=== PATIENT | female | born 1970 | race Caucasian/White ===

== ENCOUNTER 2017-10-25 06:35 | Day surgery (SDC) | payer OTHER ==
[2017-10-25] MEDS ORDERED: Lactated Ringers 1,000 ML IV SCH (07:00)
[2017-10-25] MEDS ORDERED: fentaNYL 100 MCG/2 ML SDV ONE (07:18)
[2017-10-25] MEDS ORDERED: Propofol 200 MG/20 ML SDV ONE (07:18)
[2017-10-25] MEDS ORDERED: Midazolam 1 MG/ML 2 ML SDV ONE (07:18)
[2017-10-25 09:11] VITALS: BP 101/70
--- NOTE | 2017-10-25 09:28 | OR ---
DATE OF PROCEDURE: 10/25/2017 PREOPERATIVE DIAGNOSES: 1. Dysphagia. 2. History of colon cancer. POSTOPERATIVE DIAGNOSES: 1. Dysphagia, etiology unknown. 2. History of colon cancer. 3. Unremarkable colonoscopy. PROCEDURE PERFORMED: Esophagogastroduodenoscopy and colonoscopy to the cecum. SURGEON: Sd Pal MD. ANESTHESIA: IV anesthesia with monitored anesthesia care. INDICATION: This 47-year-old white female is referred for upper and lower endoscopy. Indication for upper endoscopy is dysphagia. Food gets stuck in her esophagus. She says ten years ago, it was dilated. Additionally, she is referred for a colonoscopy because of history of colon cancer. She underwent a low anterior resection, lymphadenectomy, and liver resection at [facility] about seven years ago. I counseled her for upper and lower endoscopy with possible dilatation of her esophagus including risks and alternatives, and she gave her informed consent to proceed. DESCRIPTION OF PROCEDURE: The patient was placed in the left lateral decubitus position. IV anesthesia was administered by the Anesthesia Service. Time-out was held. The flexible video Olympus upper endoscope was passed through her mouth, down her esophagus, and into her stomach. There was no evidence of a stricture or any narrowing of the esophagus. The scope was easily passed through the pylorus into the duodenum, reaching its third portion. The scope was then slowly withdrawn, examining the mucosa throughout. The duodenal mucosa appeared unremarkable. The scope was brought back up through the pylorus into the antrum. The antrum appeared unremarkable. The scope was retroflexed. The proximal stomach appeared unremarkable. The scope was straightened and brought up through the GE junction. This appeared unremarkable. The scope was then brought up through the unremarkable appearing esophagus and was removed. Next a rectal exam was performed, which was unremarkable. The flexible video Olympus colonoscope was introduced through her anus, up her rectum, and out her colon all way to the cecum. Once the cecum was reached, the scope was slowly withdrawn, examining the mucosa throughout. No mucosal abnormalities were noted. The anastomosis looked well with no evidence of local recurrence. The scope was retroflexed in the rectum with the distal rectum appearing unremarkable. The scope was straightened and removed. She tolerated the procedure well. Sd Pal MD /[id number] [facility]
== END 2017-10-25 09:29 | disposition home or self-care (01) ==
LOC: JP.SDS 06:35
PROVIDERS: ATTEND Surgery
DX: R13.10 Dysphagia, unspecified (principal); K21.9 Gastro-esophageal reflux disease without esophagitis; E03.9 Hypothyroidism, unspecified; E66.9 Obesity, unspecified; Z91.018 Allergy to other foods; Z85.038 Personal history of other malignant neoplasm of large intestine; Z91.040 Latex allergy status; Z91.09 Other allergy status, other than to drugs and biological substances; Z68.30 Body mass index [BMI] 30.0-30.9, adult
CPT/HCPCS: 43235; 45378; J2250; J2704; J3010; J7120

== ENCOUNTER 2020-04-29 07:43 | Day surgery (SDC) | payer BC ==
[~2020-04-29 07:43] MED LIST: Midazolam 1 MG/ML 2 ML SDV ONE; Propofol 200 MG/20 ML SDV ONE; fentaNYL 100 MCG/2 ML SDV ONE
[2020-04-29] MEDS ORDERED: Dextrose 5%-Lactated Ringers 1,000 ML IV SCH (08:30)
[2020-04-29 11:49] VITALS: BP 101/72; PULSE 69
--- NOTE | 2020-05-01 17:58 | OR ---
DATE OF PROCEDURE: 04/29/2020 SURGEON: Froylan De Leon MD PREOPERATIVE DIAGNOSIS: History of sigmoid colon carcinoma. POSTOPERATIVE DIAGNOSES: 1. History of sigmoid colon carcinoma. 2. A single small polyp (5 mm), 15 cm from the dentate line. OPERATIVE PROCEDURE: Flexible colonoscopy with polypectomy by snare technique. ANESTHESIA: IV sedation. INDICATION FOR PROCEDURE: This is a 50-year-old who is status post sigmoid colon carcinoma with liver metastasis, treated in 2009. She at this point has been cancer-free for 10 years and is here for a followup colonoscopy with polypectomy as indicated. Potential risks including bleeding and perforation were discussed, and the patient wishes to proceed. DETAILS OF PROCEDURE: The patient was taken to the operating room and placed in a left lateral decubitus position. IV sedation was administered after which a digital rectal exam was performed, was unremarkable. Colonoscope was then passed into the rectum with retroflexion revealing uncomplicated hemorrhoidal columns. Scope was eventually passed to the level of the cecum. The prep was quite good with only a small amount of liquid stool present. The patient had no areas of diverticular disease and no areas of colitis. The anastomosis was visible and it was widely patent. The patient had one single polyp measuring around 5 mm at 15 cm, which would be likely in the upper rectum. This was slightly distal to the previous anastomosis. This was encircled at the base, was cautery snared and removed, and sent for histologic evaluation. Good hemostasis at that snare site was confirmed and the procedure then concluded. Assuming today's polyp is an adenomatous polyp, we would plan to repeat the colonoscopy in 2 years. If it is a hyperplastic polyp or some other non-neoplastic pathology, then a repeat colonoscopy in 5 years would be warranted. We will contact the patient when the pathology is available. Froylan De Leon MD /[id number]
== END 2020-04-29 11:55 | disposition home or self-care (01) ==
LOC: JP.SDS 07:43
PROVIDERS: ATTEND Surgery
DX: Z12.11 Encounter for screening for malignant neoplasm of colon (principal); K63.5 Polyp of colon; K63.89 Other specified diseases of intestine; C78.7 Secondary malignant neoplasm of liver and intrahepatic bile duct; E66.9 Obesity, unspecified; E03.9 Hypothyroidism, unspecified; K21.9 Gastro-esophageal reflux disease without esophagitis; Z85.038 Personal history of other malignant neoplasm of large intestine; Z98.890 Other specified postprocedural states; Z91.040 Latex allergy status; Z88.8 Allergy status to other drugs, medicaments and biological substances; Z68.41 Body mass index [BMI] 40.0-44.9, adult
CPT/HCPCS: 45385; 81025; J2250; J2704; J3010; J7121

== ENCOUNTER 2023-04-30 06:19 | Day surgery (SDC) | payer BC, OTHER ==
[2023-04-30] MEDS ORDERED: Sodium Chloride 0.9% 1,000 ML IV SCH (07:00)
[2023-04-30] MEDS ORDERED: fentaNYL 50 MCG/ML SDV ONE (07:16)
[2023-04-30] MEDS ORDERED: Midazolam 1 MG/ML 2 ML SDV ONE (07:16)
[2023-04-30] MEDS ORDERED: Propofol 200 MG/20 ML SDV ONE (07:17)
[2023-04-30 09:18] VITALS: BP 106/71; PULSE 63
== END 2023-04-30 09:23 | disposition home or self-care (01) ==
LOC: JP.SDS 06:19
PROVIDERS: ATTEND Surgery
DX: Z12.11 Encounter for screening for malignant neoplasm of colon (principal); D12.2 Benign neoplasm of ascending colon; K21.9 Gastro-esophageal reflux disease without esophagitis; E03.9 Hypothyroidism, unspecified; Z85.038 Personal history of other malignant neoplasm of large intestine; Z91.040 Latex allergy status; Z91.018 Allergy to other foods; Z98.0 Intestinal bypass and anastomosis status
CPT/HCPCS: 45385; 88305; J2250; J2704; J3010; J7030

== ENCOUNTER 2023-05-27 19:21 | Emergency (ER) | payer OTHER ==
[2023-05-27 19:48] VITALS: BP 134/72; PULSE 75
== END 2023-05-27 21:47 | disposition home or self-care (01) ==
LOC: JP.ED 19:21
DX: S82.831A Other fracture of upper and lower end of right fibula, initial encounter for closed fracture (principal); K21.9 Gastro-esophageal reflux disease without esophagitis; E03.9 Hypothyroidism, unspecified; Z86.16 Personal history of COVID-19; Z79.899 Other long term (current) drug therapy; Z79.82 Long term (current) use of aspirin; Z91.018 Allergy to other foods; Z91.040 Latex allergy status; Z91.048 Other nonmedicinal substance allergy status; W23.0XXA Caught, crushed, jammed, or pinched between moving objects, initial encounter; Y93.01 Activity, walking, marching and hiking
CPT/HCPCS: 73560-26-RT; 73560-RT; 73600-26-RT; 73600-RT; 99284

== ENCOUNTER 2025-04-23 06:25 | Day surgery (SDC) | payer OTHER ==
[2025-04-23] MEDS ORDERED: Midazolam 1 MG/ML 2 ML SDV ONE (06:55)
[2025-04-23] MEDS ORDERED: Propofol 200 MG/20 ML SDV ONE ×2 (06:55→07:52)
[2025-04-23] MEDS ORDERED: fentaNYL 50 MCG/ML SDV ONE (06:55)
[2025-04-23] MEDS: Lactated Ringers 1,000 ML IV SCH (07:26)
[2025-04-23 09:09] VITALS: BP 105/67; PULSE 57
== END 2025-04-23 09:20 | disposition home or self-care (01) ==
LOC: JP.SDS 06:25
PROVIDERS: ATTEND Surgery
DX: Z12.11 Encounter for screening for malignant neoplasm of colon (principal); K22.89 Other specified disease of esophagus; K21.9 Gastro-esophageal reflux disease without esophagitis; Z98.0 Intestinal bypass and anastomosis status; Z85.038 Personal history of other malignant neoplasm of large intestine
CPT/HCPCS: 00813; 43239; 45378; 88305; J2250; J2704; J3010; J7120